=== PATIENT | male | born 1980 | race Caucasian/White ===

== ENCOUNTER → 2016-05-15 07:39 | Outpatient (CLI) | payer BC ==
--- NOTE | 2016-05-26 08:45 | EMG ---
PATIENT:KONSTANTIN COLLADO DATE OF SERVICE: 05/15/16 MEDICAL RECORD: [id number] DATE OF : 76 LOCATION: [facility] ADMISSION DATE: REFERRING PHYSICIAN: FIDEL HITCHCOCK MD INTERPRETING PHYSICIAN: SANDY VAUGHN MD DATE OF SERVICE: 05/15/2016 REFERRED BY: Dr. Hitchcock as an outpatient. DATE OF EXAMINATION: 05/15/2016 ELECTROMYOGRAPHIC DATA: Electromyographic examination is limited to the right lower extremity and is limited to the nerve conduction studies only at the request of the referring physician. In the right lower extremity, right peroneal motor stimulation elicits a compound motor action potential with a distal latency of 4.4 milliseconds, peak amplitude of 5 millivolts, and calculated conduction velocity of 49 meters per second. Right tibial motor stimulation elicits a compound motor action potential with a distal latency of 6.0 milliseconds, peak amplitude of 20 millivolts, and calculated conduction velocity of 43 meters per second. Antidromic right sural sensory stimulation elicits a response with a distal latency of 3.5 milliseconds, amplitude of 6 microvolts and calculated conduction velocity of 56 meters per second. The right lower extremity H reflex recording at gastrocleus is not reliably reproduced. The patient has reportedly had several previous back surgeries. Needle electrode examination is not performed at this time. INTERPRETATION: Electromyographic examination of the right lower extremity, limited to the nerve conduction studies only at the request of the referring physician, is normal. All values fall within normal limits with the exception of absence of the right lower extremity H reflex. This is a soft finding only. In the absence of needle electrode examination or comparison to the contralateral lower extremity, no further conclusions maybe drawn in this regard at this time. TRANSINT:[id number] Voice Confirmation ID: [id number] DOCUMENT ID: [id number] SANDY VAUGHN MD at 0845 CC: [id number] DICTATION DATE: 05/15/16 08 TRANSPORTATION ANALYST: 05/16/16 0113 DEP CLI 05/15/16 [id number] [place] [address]
== END | disposition home or self-care (01) ==
LOC: D.CN 07:39
DX: G54.1 Lumbosacral plexus disorders (principal)